=== PATIENT | female | born 1990 | race African-American/Black ===

== ENCOUNTER 2022-05-01 01:17 | Emergency (ER) | payer MEDICAID ==
[~2022-05-01] VITALS: Ht 170.2 cm; Wt 72.6 kg
[2022-05-01 01:24] VITALS: BP 140/77
--- NOTE | 2022-05-01 01:25 | NUR ---
[id number] C/O COUGH FOR THE PAST FEW DAYS. PATIENT IS A/O X 3, RR EVEN AND UNLABORED NO SOB NOTED. VSS.
--- NOTE | 2022-05-01 01:59 | NUR ---
Patient eloped from facility. ER MD notified.
== END 2022-05-01 02:09 | disposition left against medical advice (07) ==
LOC: EDSEX 01:19 → ER 01:19
DX: R05.9 Cough, unspecified (principal); R73.9 Hyperglycemia, unspecified; F17.200 Nicotine dependence, unspecified, uncomplicated; Z59.00 Homelessness unspecified
CPT/HCPCS: 82962-TC